=== PATIENT | female | born 2000 | race Asian ===

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

== ENCOUNTER 2018-01-01 02:25 | Emergency (ER) | payer OTHER ==
[~2018-01-01] VITALS: Ht 157.5 cm; Wt 56.7 kg
[2018-01-01 02:29] VITALS: BP 108/63; PULSE 85; TEMP 97.9
[2018-01-01] MEDS ORDERED: PRENATAL1 TA7 PO (02:37)
[2018-01-01] MEDS ORDERED: MAGIC MOUTH PO (03:28)
== END 2018-01-01 03:35 | disposition home or self-care (01) ==
LOC: COL.ER 02:25
DX: O26.893 Other specified pregnancy related conditions, third trimester (principal); K14.0 Glossitis; Z3A.33 33 weeks gestation of pregnancy

== ENCOUNTER 2018-02-04 12:04 | Emergency (ER) | payer OTHER ==
[~2018-02-04] VITALS: Ht 388.6 cm; Wt 56.8 kg
[~2018-02-04 12:04] MED LIST: MAGIC MOUTH PO; PRENATAL1 TA7 PO
[2018-02-04 12:11] VITALS: BP 118/79; TEMP 97.1
[2018-02-04] MEDS ORDERED: AMOXICILLIN 50500 MG PO (13:53)
[2018-02-04 14:07] VITALS: PULSE 86
== END 2018-02-04 14:13 | disposition home or self-care (01) ==
LOC: COL.ER 12:04
DX: O99.613 Diseases of the digestive system complicating pregnancy, third trimester (principal); K08.89 Other specified disorders of teeth and supporting structures; R68.84 Jaw pain; Z3A.37 37 weeks gestation of pregnancy

== ENCOUNTER 2018-02-15 03:46 | Inpatient (IN) | payer OTHER ==
[2018-02-15] VITALS (35 sets, daily range): BP systolic 101–132; BP diastolic 55–78; PULSE 71–111; TEMP 97.9–98.2
[~2018-02-15] VITALS: Ht 152.4 cm; Wt 56.4 kg
[~2018-02-15 03:46] MED LIST changes: +AMOXICILLIN 50500 MG PO
[2018-02-15] MEDS ORDERED: PRENATAL1 TA7 PO (04:41)
[2018-02-15 04:54] LABS: BASO % 0.3 % (0.0-2.0); EOS # 0.1 (0.0-0.7); EOS % 1.6 % (0-4.0); GRAN # 5.3 (1.4-6.5); GRAN % 61.7 % (42.2-75.2); LYMPH # 2.3 (1.2-3.4); LYMPH % 26.9 % (20.0-51.0); MEAN CELL VOLUME 63 fl (80.0-95.0); MEAN CORPUSCULAR HGB CONC 30 g/dl (33.0-37.0); MEAN PLATELET VOLUME 10.1 fl (7.4-10.4); MONO # 0.7 (0.1-0.6); MONO % 8.6 % (1.7-9.3); PLATELET COUNT 233 K/mm3 (130-400); REDCELL DISTRIBUTION WIDTH-CV 19.1 % (11.5-14.5)
[2018-02-15 04:59] LABS: HEMATOCRIT 29.4 % (35.0-45.0); HEMOGLOBIN 8.8 g/dl (12.0-15.0); MEAN CORPUSCULAR HEMOGLOBIN 19 pg (26.0-32.0)
[2018-02-15 05:02] LABS: RED BLOOD COUNT 4.69 M/mm3 (4.10-5.30)
[2018-02-16 09:40] VITALS: BP 112/59; PULSE 86; TEMP 98.1
[2018-02-16 12:25] VITALS: BP 93/49; PULSE 81; TEMP 98
[2018-02-16 16:50] VITALS: BP 110/72; PULSE 82; TEMP 97.8
[2018-02-16 20:50] VITALS: BP 106/64; PULSE 91; TEMP 97.5
[2018-02-17 07:00] VITALS: BP 126/74; PULSE 74; TEMP 97.6
[2018-02-17] MEDS ORDERED: PERCOCET 325 MG1 TA2 PO (09:04)
[2018-02-17] MEDS ORDERED: IBU800 M1 PO (09:04)
[2018-02-17] MEDS ORDERED: FERROUS SU325 MG/TAB PO (09:04)
== END 2018-02-17 10:50 | disposition home or self-care (01) | DRG 775 ==
LOC: LDRO 03:46 → LDR 04:15 → OB 04:15
PROVIDERS: Obstetrics & Gynecology
PROC: 10E0XZZ Delivery of Products of Conception, External Approach (ICD-10-PCS; principal; 2018-02-15)
PROC: 0HQ9XZZ Repair Perineum Skin, External Approach (ICD-10-PCS; 2018-02-15)
PROC: 0UQGXZZ Repair Vagina, External Approach (ICD-10-PCS; 2018-02-15)
DX: O70.0 First degree perineal laceration during delivery (principal); Z3A.37 37 weeks gestation of pregnancy; Z37.0 Single live birth; Z22.330 Carrier of Group B streptococcus; O99.02 Anemia complicating childbirth
CPT/HCPCS: J1200; J2270; J2590; J2795; J3010; J7120

== ENCOUNTER 2018-07-01 21:23 | Emergency (ER) | payer OTHER ==
[~2018-07-01] VITALS: Ht 153 cm; Wt 52.7 kg
[~2018-07-01 21:23] MED LIST changes: +FERROUS SU325 MG/TAB PO; +IBU800 M1 PO; +PERCOCET 325 MG1 TA2 PO
[2018-07-01 21:31] VITALS: BP 110/75; TEMP 97.9
[2018-07-01 22:11] LABS: COLLECTION METHOD CLEAN CATCH
[2018-07-01 22:19] LABS: MUCOUS Present /lpf; PH 7 (5-8); SQUAMOUS EPITHELIAL 0-2 /hpf; URINE APPEARANCE Clear; URINE BACTERIA None Seen /hpf; URINE BILIRUBIN Negative (NEGATIVE); URINE BLOOD Negative (NEGATIVE); URINE COLOR Yellow; URINE GLUCOSE Negative (NEGATIVE); URINE KETONE Negative (NEGATIVE); URINE LEUKOCYTE ESTERASE Negative (NEGATIVE); URINE NITRATE Negative (NEGATIVE); URINE PROTEIN(semi-quant) Negative (NEGATIVE); URINE RBC 0-2 /hpf; URINE WBC 0-2 /hpf
[2018-07-01] MEDS ORDERED: ZOFRAN 4MG T4 MG/TAB PO (23:13)
[2018-07-01 23:20] VITALS: PULSE 79
== END 2018-07-01 23:21 | disposition home or self-care (01) ==
LOC: COL.ER 21:23
PROVIDERS: Nurse Practitioner Primary Care
DX: R51 Headache (principal); Z88.0 Allergy status to penicillin
CPT/HCPCS: J1200; J1885; J2405

== ENCOUNTER 2018-10-23 10:28 | Emergency (ER) | payer OTHER ==
[~2018-10-23] VITALS: Ht 153 cm; Wt 56.4 kg
[~2018-10-23 10:28] MED LIST changes: +ZOFRAN 4MG T4 MG/TAB PO
[2018-10-23 10:33] VITALS: BP 115/55; TEMP 97.9
[2018-10-23 11:13] LABS: COLLECTION METHOD CLEAN CATCH
[2018-10-23 11:15] LABS: BASO % 0.8 % (0.0-2.0); EOS # 0.5 (0.0-0.7); EOS % 10.6 % (0-4.0); GRAN # 1.3 (1.4-6.5); GRAN % 25.9 % (42.2-75.2); HEMATOCRIT 37.6 % (35.0-45.0); HEMOGLOBIN 11.1 g/dl (12.0-15.0); LYMPH # 2.6 (1.2-3.4); LYMPH % 52.8 % (20.0-51.0); MEAN CELL VOLUME 67 fl (80.0-95.0); MEAN CORPUSCULAR HEMOGLOBIN 20 pg (26.0-32.0); MEAN CORPUSCULAR HGB CONC 30 g/dl (33.0-37.0); MONO # 0.5 (0.1-0.6); MONO % 9.7 % (1.7-9.3); PLATELET COUNT 225 K/mm3 (130-400); RED BLOOD COUNT 5.59 M/mm3 (4.10-5.30); REDCELL DISTRIBUTION WIDTH-CV 16.7 % (11.5-14.5)
[2018-10-23 11:19] LABS: MUCOUS Present /lpf; PH 5 (5-8); URINE APPEARANCE Clear; URINE BACTERIA Rare /hpf; URINE BILIRUBIN Negative (NEGATIVE); URINE BLOOD Negative (NEGATIVE); URINE COLOR Yellow; URINE GLUCOSE Negative (NEGATIVE); URINE KETONE Negative (NEGATIVE); URINE LEUKOCYTE ESTERASE Negative (NEGATIVE); URINE NITRATE Negative (NEGATIVE); URINE PROTEIN(semi-quant) Negative (NEGATIVE); URINE RBC 0-2 /hpf; URINE UROBILINOGEN Negative (NEGATIVE)
[2018-10-23 11:37] LABS: ALBUMIN 4.3 gm/dL (3.5-5.0); BILIRUBIN,TOTAL 0.4 mg/dL (0.0-1.0); CALCIUM 8.9 mg/dL (8.4-10.2); CREATININE, serum 0.54 mg/dL (0.52-1.25); POTASSIUM 4.4 mmol/L (3.4-5.0); TOTAL PROTEIN 7.6 gm/dL (6.4-8.2)
[2018-10-23 14:18] VITALS: PULSE 61
== END 2018-10-23 14:20 | disposition home or self-care (01) ==
LOC: COL.ER 10:28
PROVIDERS: Emergency Medicine
DX: R10.2 Pelvic and perineal pain (principal)

== ENCOUNTER 2019-01-10 01:44 | Emergency (ER) | payer OTHER ==
[~2019-01-10] VITALS: Ht 153 cm; Wt 57.0 kg
[2019-01-10 01:48] VITALS: TEMP 98.8
[2019-01-10 02:22] LABS: BASO % 0.6 % (0.0-2.0); EOS # 0.3 (0.0-0.7); EOS % 4.6 % (0-4.0); GRAN # 2.3 (1.4-6.5); GRAN % 35.9 % (42.2-75.2); HEMOGLOBIN 11.2 g/dl (12.0-15.0); LYMPH # 3.2 (1.2-3.4); MEAN CELL VOLUME 68 fl (80.0-95.0); MEAN CORPUSCULAR HEMOGLOBIN 21 pg (26.0-32.0); MEAN CORPUSCULAR HGB CONC 31 g/dl (33.0-37.0); MONO # 0.6 (0.1-0.6); MONO % 9.7 % (1.7-9.3); PLATELET COUNT 263 K/mm3 (130-400); REDCELL DISTRIBUTION WIDTH-CV 17.8 % (11.5-14.5)
[2019-01-10 02:23] LABS: HEMATOCRIT 36.7 % (35.0-45.0)
[2019-01-10 02:32] LABS: ALBUMIN 4.2 gm/dL (3.5-5.0); BILIRUBIN,TOTAL 0.2 mg/dL (0.0-1.0); CALCIUM 9.3 mg/dL (8.4-10.2); CREATININE, serum 0.43 (0.52-1.25); POTASSIUM 3.7 mmol/L (3.4-5.0); TOTAL PROTEIN 7.3 gm/dL (6.4-8.2)
[2019-01-10 02:54] LABS: COLLECTION METHOD CLEAN CATCH
[2019-01-10 02:59] LABS: MUCOUS Present /lpf; PH 6 (5-8); SQUAMOUS EPITHELIAL None Seen /hpf; URINE APPEARANCE Clear; URINE BACTERIA None Seen /hpf; URINE BILIRUBIN Negative (NEGATIVE); URINE BLOOD Negative (NEGATIVE); URINE COLOR Yellow; URINE GLUCOSE Negative (NEGATIVE); URINE KETONE Negative (NEGATIVE); URINE LEUKOCYTE ESTERASE Negative (NEGATIVE); URINE NITRATE Negative (NEGATIVE); URINE PROTEIN(semi-quant) Negative (NEGATIVE); URINE RBC 0-2 /hpf; URINE UROBILINOGEN Negative (NEGATIVE)
[2019-01-10] MEDS ORDERED: PHENERGAN 25 TA25 MG PO (04:01)
[2019-01-10 04:28] VITALS: BP 115/66; PULSE 69
== END 2019-01-10 04:28 | disposition home or self-care (01) ==
LOC: COL.ER 01:44
PROVIDERS: Emergency Medicine
DX: O21.9 Vomiting of pregnancy, unspecified (principal); O26.891 Other specified pregnancy related conditions, first trimester; R10.13 Epigastric pain; R19.7 Diarrhea, unspecified; Z3A.01 Less than 8 weeks gestation of pregnancy
CPT/HCPCS: J2550

== ENCOUNTER 2019-03-27 18:09 | Emergency (ER) | payer OTHER ==
[~2019-03-27] VITALS: Ht 104 cm; Wt 58.6 kg
[~2019-03-27 18:09] MED LIST changes: +PHENERGAN 25 TA25 MG PO
[2019-03-27 18:17] VITALS: TEMP 98.9
[2019-03-27 18:59] LABS: COLLECTION METHOD CLEAN CATCH
[2019-03-27 19:10] LABS: MUCOUS Present /lpf; PH 6 (5-8); URINE APPEARANCE Hazy; URINE BACTERIA None Seen /hpf; URINE BILIRUBIN Negative (NEGATIVE); URINE BLOOD Negative (NEGATIVE); URINE COLOR Yellow; URINE GLUCOSE Negative (NEGATIVE); URINE KETONE Trace (NEGATIVE); URINE LEUKOCYTE ESTERASE Trace (NEGATIVE); URINE NITRATE Negative (NEGATIVE); URINE PROTEIN(semi-quant) 1+ (NEGATIVE)
[2019-03-27 19:27] LABS: BASO % 0.3 % (0.0-2.0); EOS # 0.3 (0.0-0.7); EOS % 3.8 % (0-4.0); GRAN # 4.3 (1.4-6.5); GRAN % 60.9 % (42.2-75.2); HEMOGLOBIN 10.6 g/dl (12.0-15.0); LYMPH % 27.9 % (20.0-51.0); MEAN CELL VOLUME 70 fl (80.0-95.0); MEAN CORPUSCULAR HEMOGLOBIN 22 pg (26.0-32.0); MEAN CORPUSCULAR HGB CONC 32 g/dl (33.0-37.0); MONO # 0.5 (0.1-0.6); MONO % 6.4 % (1.7-9.3); PLATELET COUNT 220 K/mm3 (130-400); RED BLOOD COUNT 4.83 M/mm3 (4.10-5.30); REDCELL DISTRIBUTION WIDTH-CV 19.5 % (11.5-14.5)
[2019-03-27] MEDS ORDERED: PRENATAL (19:35)
[2019-03-27 19:37] LABS: ALBUMIN 3.5 gm/dL (3.5-5.0); BILIRUBIN,TOTAL 0.2 mg/dL (0.0-1.0); CALCIUM 8.5 mg/dL (8.4-10.2); CREATININE, serum 0.55 (0.52-1.25); POTASSIUM 3.6 mmol/L (3.4-5.0); TOTAL PROTEIN 6.5 gm/dL (6.4-8.2)
[2019-03-27 19:49] LABS: HEMATOCRIT 33.7 % (35.0-45.0)
[2019-03-27 20:59] VITALS: BP 107/68; PULSE 91
== END 2019-03-27 21:01 | disposition home or self-care (01) ==
LOC: COL.ER 18:09
PROVIDERS: Emergency Medicine
DX: O99.352 Diseases of the nervous system complicating pregnancy, second trimester (principal); R51 Headache; Z3A.16 16 weeks gestation of pregnancy
CPT/HCPCS: J0780; J1200; J7030

== ENCOUNTER 2019-07-17 17:04 | Outpatient (CLI) | payer OTHER ==
[~2019-07-17] VITALS: Ht 160 cm; Wt 64.5 kg
[~2019-07-17 17:04] MED LIST changes: +PRENATAL
--- NOTE | 2019-07-17 17:15 | NUR ---
1715-G2L1 31[address] MARK AMBULATORY TO LR 3, REPORTS ABDOMINAL PAIN OFF AND ON SINCE THIS AM AND "SOME FLUID DISCHARGE." ASSISTED ONTO ANGIE, TEE. ABBEY AMNITEST NEG. /H UPDATED ON PLAN OF CARE. ASSESMENTN COMPLETE.
[2019-07-17 17:17] VITALS: BP 123/70; PULSE 102; TEMP 98.5
--- NOTE | 2019-07-17 18:04 | NUR ---
1800 ALL DISCHARGE INSRUCTIONS GIVEN TO PATIENT AND VERBAL UNDERSTANDING NOTED. GABI DISMISSED TO HOME WITH
== END 2019-07-17 18:03 | disposition home or self-care (01) ==
LOC: LDRO 17:04
DX: O99.89 Other specified diseases and conditions complicating pregnancy, childbirth and the puerperium (principal); R10.9 Unspecified abdominal pain; Z3A.33 33 weeks gestation of pregnancy

== ENCOUNTER 2019-08-23 10:19 | Outpatient (CLI) | payer OTHER ==
[~2019-08-23] VITALS: Wt 68.6 kg
[2019-08-23 10:34] VITALS: BP 114/63; PULSE 117; TEMP 98.1
[2019-08-23 10:40] VITALS: BP 114/63; PULSE 117; TEMP 98.1
--- NOTE | 2019-08-23 10:52 | NUR ---
PATIENT HERE FOR COMPLAINTS OF BACK DISCOMFORT AND NOT BEING ABLE TO SLEEP. SVE 3.5/70/-3. BAG OF WATER FELT. EFM ON FHT 135 BABY VERY ACTIVE.GOOD ACCELERATIONS NOTED. ASSESSMENT COMPLETED. DR PANDEY CALLED AND ORDERS GIVEN TO WATCH FOR A HOUR AND RECHECK
[2019-08-23 11:34] VITALS: PULSE 78
--- NOTE | 2019-08-23 11:38 | NUR ---
NO CHANGED TO SVE. DENIES NEEDS ALL DISCHARGE INSTRUCTIONS GIVEN TO PATIENT AND AT THIS TIME. VERBAL UNDERSTANDIONG NOTED.
== END 2019-08-23 11:30 | disposition home or self-care (01) ==
LOC: LDRO 10:19 → LDR 10:30 → LDRO 11:30
DX: O62.9 Abnormality of forces of labor, unspecified (principal); Z3A.38 38 weeks gestation of pregnancy
CPT/HCPCS: OP

== ENCOUNTER 2019-08-23 13:43 | Inpatient (IN) | payer OTHER ==
[~2019-08-23] VITALS: Ht 154.9 cm; Wt 70.0 kg
[2019-08-23] VITALS (13 sets, daily range): BP systolic 102–129; BP diastolic 58–76; PULSE 78–110; TEMP 98.1–98.4
[2019-08-23 14:27] LABS: BASO % 0.4 % (0.0-2.0); EOS # 0.2 (0.0-0.7); EOS % 1.5 % (0-4.0); GRAN # 6.3 (1.4-6.5); GRAN % 63.2 % (42.2-75.2); LYMPH # 2.7 (1.2-3.4); LYMPH % 27.1 % (20.0-51.0); MEAN CELL VOLUME 62 fl (80.0-95.0); MEAN CORPUSCULAR HGB CONC 28 g/dl (33.0-37.0); MONO # 0.7 (0.1-0.6); MONO % 6.5 % (1.7-9.3); PLATELET COUNT 221 K/mm3 (130-400); REDCELL DISTRIBUTION WIDTH-CV 21.1 % (11.5-14.5)
[2019-08-23 14:28] LABS: HEMATOCRIT 32.2 % (35.0-45.0); MEAN CORPUSCULAR HEMOGLOBIN 17 pg (26.0-32.0)
--- NOTE | 2019-08-23 14:31 | NUR ---
1348 PATIENT HERE FROM HOME AND STATES STARTED LEAKING FLUID AT 1300 AND PAIN GOR WORSE. EFM ON FHT 120 BABY ACTIVE. ASSESSMENT COMPLETED. SVE 7.100/-1. DR PANDEY CALLED BUT NO ANSWER. DR POLANCO IS HERE AND REPORT GIVEN . ADMITTED AT THIS TIME FOR LABOR. IV STARTED IN LEFT WRIST.
--- NOTE | 2019-08-23 15:09 | NUR ---
1445 L CRISTI CORREA AT BEDSIDE. PATIENT SITS UP ON BED FOR SPINAL PLACEMENT. SEE Long COLIN CRNA FOR NOTES. DENIES NEEDS AT THIS TIME,
--- NOTE | 2019-08-23 16:15 | NUR ---
1530 PATIENT COMPLETE. WILL START PUSHING WITH CONTRACTIONS. 1538 BABY BOY BORN VIA BY DR POLANCO. CORD CLAMPED AND CUT BY . BABY TO MOMS CHEST. 1543 PLACENTA DELIVERED AT THIS TIME. PITOCIN STARTED AT 333/HR PER PROTOCOL. FUNDUS FIRM AND MEDERATE BLEEDING NOTED. PATIEETN DENIES NEEDS
--- NOTE | 2019-08-23 17:40 | NUR ---
ALL PADS CHANGED, PATIENT UNABLE TO LIFT LEGS AT THIS TIME.
--- NOTE | 2019-08-23 18:30 | NUR ---
Denies needs. Able to move legs but states "my leg is numb" pointing to her L leg
--- NOTE | 2019-08-23 19:50 | NUR ---
Attempt to get pt up. Pt states "I can not get up, my leg is numb" Pt able to lift legs, use legs to lift hips from bed for pericare and pad/panty placement. Pt states "she can not get up, she is afraid" This nurse leaves room to get assistance, and upon return pt's is setting pt down into wheelchair. informed pt and spouse that pt is not get get out of bed without STAFF assistance, verbalize understanding. To room via wheelchair. Attempt pivot transfer with nurse x 2. Pt does not/?unable to stand on own. While standing with max assist of 2 nurses, pt instructed to move her legs/walk. Pt states "I can not". Lifted onto edge of bed by nurses.Pt manually lifts legs onto bed.
[2019-08-24 03:50] VITALS: BP 105/61; PULSE 85; TEMP 98.2
[2019-08-24 07:15] VITALS: BP 117/71; PULSE 91; TEMP 98
--- NOTE | 2019-08-24 10:51 | NUR ---
Congratulated the family on their new baby.
[2019-08-24 11:23] VITALS: BP 102/36; PULSE 83; TEMP 97.5
[2019-08-24 15:38] VITALS: BP 117/62; PULSE 88; TEMP 97.9
[2019-08-24 20:55] VITALS: BP 108/61; PULSE 91
[2019-08-25 07:12] VITALS: BP 108/65; PULSE 91; TEMP 98.7
[2019-08-25] MEDS ORDERED: MOTRIN 800800 MG/TAB PO (08:41)
[2019-08-25] MEDS ORDERED: PERCOCET 325 MG1 TA2 PO (08:42)
== END 2019-08-25 13:00 | disposition home or self-care (01) | DRG 807 ==
LOC: LDRO 13:43 → LDR 14:00 → OB 22:23
PROVIDERS: ADMIT Obstetrics & Gynecology
PROC: 10E0XZZ Delivery of Products of Conception, External Approach (ICD-10-PCS; principal; 2019-08-23)
DX: O99.02 Anemia complicating childbirth (principal); Z37.0 Single live birth; D64.9 Anemia, unspecified; O76 Abnormality in fetal heart rate and rhythm complicating labor and delivery; O99.284 Endocrine, nutritional and metabolic diseases complicating childbirth; E28.2 Polycystic ovarian syndrome; O77.0 Labor and delivery complicated by meconium in amniotic fluid; Z3A.38 38 weeks gestation of pregnancy
CPT/HCPCS: J2590; J7120

== ENCOUNTER 2020-06-06 01:53 | Outpatient (CLI) | payer OTHER ==
[~2020-06-06 01:53] MED LIST changes: +MOTRIN 800800 MG/TAB PO
--- NOTE | 2020-06-06 02:00 | NUR ---
Ambulatory to unit, accompanied by spouse. Pt speaks limitted [place], understands more. translates. states "she doesn't feel very good" reports last LMP 10/19/2019, with + test, just returned from [place] 3 wks ago.
[2020-06-06 02:15] VITALS: BP 110/71; PULSE 71; TEMP 97.9
[2020-06-06 03:29] LABS: COLLECTION METHOD CLEAN CATCH
[2020-06-06 03:35] LABS: PH 7 (5-8); SQUAMOUS EPITHELIAL None Seen /hpf; URINE APPEARANCE Clear; URINE BACTERIA None Seen /hpf; URINE BILIRUBIN Negative (NEGATIVE); URINE BLOOD Negative (NEGATIVE); URINE COLOR Straw; URINE GLUCOSE Negative (NEGATIVE); URINE KETONE Negative (NEGATIVE); URINE LEUKOCYTE ESTERASE Negative (NEGATIVE); URINE NITRATE Negative (NEGATIVE); URINE PROTEIN(semi-quant) Negative (NEGATIVE); URINE RBC 0-2 /hpf; URINE UROBILINOGEN Negative (NEGATIVE); URINE WBC 0-2 /hpf
--- NOTE | 2020-06-06 04:00 | NUR ---
Repeat SVE with no changes noted. Pt reports no change in discomfort.
--- NOTE | 2020-06-06 04:15 | NUR ---
discharge instructions reviewed with spouse. Spouse also informed that other gena could not be brought witih them to the hospital the next time they came in and tht children are also not allowed at [facility] office. Spouse asked "where can I drop him off then. We don't have anyone". Explained to spouse that they would have to wait in the car. Ambulatory off unit.
== END 2020-06-06 04:15 | disposition home or self-care (01) ==
LOC: LDR 01:53 → LDRO 01:53 → LDR 02:25 → LDRO 04:15
PROVIDERS: Obstetrics & Gynecology
DX: O26.893 Other specified pregnancy related conditions, third trimester (principal); Z3A.32 32 weeks gestation of pregnancy
CPT/HCPCS: OP

== ENCOUNTER 2020-10-21 16:38 | Emergency (ER) | payer OTHER ==
[~2020-10-21] VITALS: Ht 153 cm; Wt 61.0 kg
[2020-10-21 16:44] VITALS: TEMP 98.5
[2020-10-21 17:19] LABS: BASO % 0.4 % (0.0-2.0); EOS # 0.2 (0.0-0.7); EOS % 3.5 % (0-4.0); GRAN # 1.9 (1.4-6.5); GRAN % 36.3 % (42.2-75.2); HEMOGLOBIN 10.9 g/dl (12.5-16.0); LYMPH # 2.7 (1.2-3.4); LYMPH % 51.7 % (20.0-51.0); MEAN CELL VOLUME 68 fl (80.0-100.0); MEAN CORPUSCULAR HEMOGLOBIN 21 pg (27.0-31.0); MEAN CORPUSCULAR HGB CONC 30 g/dl (33.0-37.0); MONO # 0.4 (0.1-0.6); MONO % 7.9 % (1.7-9.3); PLATELET COUNT 256 K/mm3 (130-400); RED BLOOD COUNT 5.31 M/mm3 (4.10-5.30); REDCELL DISTRIBUTION WIDTH-CV 15.9 % (11.5-14.5)
[2020-10-21 17:25] LABS: ALANINE AMINOTRANSFERASE 32 U/L (4-34); ALBUMIN 4.5 gm/dL (3.5-5.0); ALKALINE PHOSPHATASE 93 U/L (50-136); ANION GAP 9 mmol/L (7-16); AST,SGOT 33 U/L (15-37); BILIRUBIN,TOTAL 0.4 mg/dL (0.0-1.0); BLOOD UREA NITROGEN 12 mg/dL (7-17); CALCIUM 9.1 mg/dL (8.4-10.2); CARBON DIOXIDE 23 mmol/L (22-30); CHLORIDE 106 mmol/L (98-107); CREATININE, serum 0.65 (0.52-1.25); GLUCOSE 95 mg/dL (74-106); LIPASE 98 U/L (23-300); SODIUM 139 mmol/L (137-145); TOTAL PROTEIN 7.8 gm/dL (6.4-8.2)
[2020-10-21 17:28] LABS: C-REACTIVE PROTEIN < 0.5 mg/dL (0.0-0.9)
[2020-10-21 17:47] LABS: HEMATOCRIT 36.3 % (37.0-47.0)
[2020-10-21 17:52] LABS: COLLECTION METHOD CLEAN CATCH
[2020-10-21 18:02] LABS: MUCOUS Present /lpf; PH 6 (5-8); SQUAMOUS EPITHELIAL 0-2 /hpf; URINE APPEARANCE Clear; URINE BACTERIA None Seen /hpf; URINE BILIRUBIN Negative (NEGATIVE); URINE BLOOD Negative (NEGATIVE); URINE COLOR Yellow; URINE GLUCOSE Negative (NEGATIVE); URINE KETONE Negative (NEGATIVE); URINE LEUKOCYTE ESTERASE Negative (NEGATIVE); URINE NITRATE Negative (NEGATIVE); URINE PROTEIN(semi-quant) Negative (NEGATIVE); URINE RBC 0-2 /hpf
[2020-10-21 20:57] VITALS: BP 132/70; PULSE 77
== END 2020-10-21 20:57 | disposition home or self-care (01) ==
LOC: COL.ER 16:38
PROVIDERS: Nurse Practitioner
DX: R10.31 Right lower quadrant pain (principal); Z88.1 Allergy status to other antibiotic agents
CPT/HCPCS: J1170; J2405; J7030; Q9967